=== PATIENT | male | born 1965 | race Caucasian/White ===

== ENCOUNTER 2019-04-15 09:32 | Emergency (ER) | payer MEDICAID ==
[2019-04-15 10:26] VITALS: BP 172/103
[2019-04-15] MEDS ORDERED: Orphenadrine 100 MG Tab.ER PO ONE (11:30)
[2019-04-15] MEDS ORDERED: Ketorolac 30 MG/ML SDV IM ONE (11:30)
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
== END 2019-04-15 12:32 | disposition home or self-care (01) ==
LOC: JD.ED 09:32
DX: M43.6 Torticollis (principal); J44.9 Chronic obstructive pulmonary disease, unspecified; F41.9 Anxiety disorder, unspecified; F32.9 Major depressive disorder, single episode, unspecified; F17.210 Nicotine dependence, cigarettes, uncomplicated; Z88.6 Allergy status to analgesic agent; Z91.048 Other nonmedicinal substance allergy status; Z79.82 Long term (current) use of aspirin; Z79.899 Other long term (current) drug therapy
CPT/HCPCS: 96372; 99283; A9270; J1885